=== PATIENT | female | born 1980 | race Caucasian/White ===

== ENCOUNTER 2019-12-27 13:14 | Emergency (ER) | payer OTHER ==
[~2019-12-27] VITALS: Ht 152.4 cm; Wt 46.7 kg
[2019-12-27] MEDS ORDERED: XANAX1 MG PO (13:27)
[2019-12-27] MEDS ORDERED: BRINTELLIX10 MG PO (13:27)
[2019-12-27] MEDS ORDERED: TESSALON PERLE100 MG PO (14:53)
[2019-12-27] MEDS ORDERED: PROAIR HFA8.5 GM INH (14:53)
[2019-12-27] MEDS ORDERED: ZPAK PO (14:53)
[2019-12-27] MEDS ORDERED: NORCO 5-325 TA1 EAC2 PO (14:53)
[2019-12-27] MEDS ORDERED: ACCUNEB SO1.25 MG/1 INH (14:53)
[2019-12-27] MEDS ORDERED: PROMETHAZI6.25 MG/5 PO (14:53)
[2019-12-27 15:11] VITALS: BP 144/100
== END 2019-12-27 15:11 | disposition home or self-care (01) ==
LOC: M.ERS 13:14
DX: M94.0 Chondrocostal junction syndrome [Tietze] (principal); J20.9 Acute bronchitis, unspecified

== ENCOUNTER 2020-04-03 11:16 | Emergency (ER) | payer OTHER ==
[~2020-04-03] VITALS: Ht 152.4 cm; Wt 51.7 kg
[~2020-04-03 11:16] MED LIST: ACCUNEB SO1.25 MG/1 INH; BRINTELLIX10 MG PO; NORCO 5-325 TA1 EAC2 PO; PROAIR HFA8.5 GM INH; PROMETHAZI6.25 MG/5 PO; TESSALON PERLE100 MG PO; XANAX1 MG PO; ZPAK PO
[2020-04-03 11:32] VITALS: BP 140/87
[2020-04-03] MEDS ORDERED: HYDROCODON-ACE1 EAC7 PO (12:03)
[2020-04-03] MEDS ORDERED: PENICILLIN VK500 MG PO (12:03)
== END 2020-04-03 12:13 | disposition home or self-care (01) ==
LOC: M.ERS 11:16
DX: K04.7 Periapical abscess without sinus (principal); Z98.51 Tubal ligation status

== ENCOUNTER 2020-10-20 09:57 | Emergency (ER) | payer OTHER ==
[~2020-10-20] VITALS: Ht 154.9 cm; Wt 54.4 kg
[~2020-10-20 09:57] MED LIST changes: +HYDROCODON-ACE1 EAC7 PO; +PENICILLIN VK500 MG PO
[2020-10-20 12:26] LABS: ABSOLUTE BASOPHILS 0.1 thou/uL (0.0-0.2); ABSOLUTE LYMPHOCYTES 2.3 thou/uL (0.8-5.3); ABSOLUTE MONOCYTES 0.8 thou/uL (0.0-1.2); ABSOLUTE NEUTROPHILS 6.7 thou/uL (1.6-8.1); BASOPHILS 0.6 %; EOSINOPHILS 0.2 %; HEMATOCRIT 41.6 % (37.0-47.0); HEMOGLOBIN 14.3 gm/dL (12.0-15.0); LYMPHOCYTES 23.5 %; MCH 31.2 pg (26.0-34.0); MCHC 34.3 g/dL (28.0-37.0); MCV 90.9 fL (80.0-100.0); MONOCYTES 8.1 %; MPV 7.2 fl. (7.2-11.1); NUCLEATED RBCS 0 /100WBC; PLATELET COUNT* 462 thou/uL (150-400); POLYS 67.6 %; RBC 4.57 mil/uL (4.20-5.00); RDW-CV 13.6 % (10.5-14.5); WBC 9.9 thou/uL (4.0-11.0)
--- NOTE | 2020-10-20 12:26 | EKG ---
[place] [address] ELECTROCARDIOGRAM REPORT Name: DEXTER FOURNIERELYN Yady Room: [facility]#: [id number] Admission: 10/20/20 Attend Phys: Discharge: Date of : 84 Date of Service: 10/20/20 1159 Report #: [id number] THIS REPORT FOR: //name// [facility] ED Test Date: 2020-10-20 Test Time: 11:59:09 Pat Name: WALKER FOURNIER Department: Room: Gender: F Senior Information Security Engineer: MINDI : 1980 Requested By: Jazzmine Bellamy Order Number: [id number] MD: Christian Underwood Measurements Intervals [place] Rate: 58 P: 120 [place]: 131 QRS: 103 QRSD: 94 T: 120 QT: 449 QTc: 442 Interpretive Statements Right and left arm electrode reversal, interpretation assumes no reversal Sinus rhythm Right axis deviation Abnormal T, consider ischemia, lateral leads No previous ECG available for comparison Electronically Signed On 10-20-2020 12:26:26 CDT by Christian Underwood [email or web address] <ELECTRONICALLY SIGNED> By: Christian Underwood MD, [facility] 10/20/20 1226 1159 1159 Christian Underwood MD, [facility] /EPI
[2020-10-20 12:36] LABS: CALCIUM 8.5 mg/dL (8.5-10.1); CREATININE 0.7 mg/dL (0.6-1.3); POTASSIUM 3.6 mmol/L (3.5-5.1)
[2020-10-20 12:40] LABS: TOTAL BILIRUBIN 0.6 mg/dL (<0.1-1.0); TOTAL PROTEIN 7.3 g/dL (6.4-8.2)
[2020-10-20 14:54] LABS: URINE BLOOD NEGATIVE (Negative); URINE CLARITY CLEAR; URINE COLOR YELLOW; URINE GLUCOSE-RANDOM NEGATIVE (Negative); URINE KETONES 2+ (Negative); URINE LEUKOCYTES-REFLEX NEGATIVE (Negative); URINE NITRITE-REFLEX NEGATIVE (Negative); URINE PROTEIN TRACE (Negative); URINE SPECIFIC GRAVITY <= 1.005 (1.005-1.030); URINE UROBILINOGEN 0.2 E.U./dl (0.2-1.0)
[2020-10-20 15:19] LABS: ICTOTEST (BILI CONFIRMATORY) Negative (Negative); URINE BILIRUBIN 1+ (Negative)
[2020-10-20] MEDS ORDERED: APAP W/CODEINE1 TA2 PO (15:44)
[2020-10-20] MEDS ORDERED: NAPROSYN500 MG PO (15:45)
[2020-10-20] MEDS ORDERED: ONDANSETRON ODT4 MG PO (15:45)
[2020-10-20 16:04] VITALS: BP 126/78
== END 2020-10-20 16:04 | disposition home or self-care (01) ==
LOC: M.ERS 09:57
PROVIDERS: Physician Assistant
DX: R10.32 Left lower quadrant pain (principal); R11.2 Nausea with vomiting, unspecified; K92.1 Melena; Z87.42 Personal history of other diseases of the female genital tract; Z90.49 Acquired absence of other specified parts of digestive tract; Z98.51 Tubal ligation status